=== PATIENT | female | born 1980 | race Caucasian/White ===

== ENCOUNTER 2017-08-01 08:10 | Emergency (ER) | payer MEDICARE, MEDICAID ==
[2017-08-01] MEDS ORDERED: SODIUM CHLORIDE FLUSH 0.9% 10 ML SYRINGE IVP ONE (08:24)
--- NOTE | 2017-08-01 08:28 | ED Physician Documentation ---
PD HPI NVD - Stated complaint Stated Complaint: VOMITING - Chief complaint Chief Complaint: Abd Pain - History obtained from History obtained from: Patient - History of Present Illness Timing - onset: Today Timing - duration: Hours Timing - details: Abrupt onset, Still present Associated symptoms: Other (Anxiety). No: Abdominal pain Contributing factors: Other (The patient is getting ready to adopt a new dog.) Improved by: Vomiting Similar symptoms before: Diagnosis (Anxiety induced vomiting) Recently seen: Not recently seen - Additonal information Additional information: 36-year-old female who is a bit nervous about adopting a new dog has developed acute vomiting this morning. She has had prior issue with vomiting requiring a 3 L saline infusion for dehydration. She is here this morning after several hours of vomiting and some diarrhea. She does feel dehydrated. Review of Systems Constitutional: denies: Fever, Chills, Myalgias Eyes: denies: Photophobia Ears: denies: Ear pain Nose: denies: Congestion Throat: denies: Sore throat Cardiac: denies: Chest pain / pressure, Palpitations Respiratory: denies: Dyspnea, Cough GI: reports: Nausea, Vomiting. denies: Abdominal Pain, Constipation, Diarrhea : denies: Dysuria, Frequency Skin: denies: Rash PD PAST MEDICAL HISTORY - Present Medications Home Medications: Ambulatory Orders Medication Instructions Recorded Confirmed Allopurinol 100 mg PO DAILY 08/01/17 08/01/17 Dicyclomine [Bentyl] 20 mg PO QID 08/01/17 08/01/17 Folic Acid 1,000 mg DAILY 08/01/17 08/01/17 Levothyroxine Sodium [Levoxyl] 100 mcg PO DAILY 08/01/17 08/01/17 Promethazine [Phenergan] 12.5 mg PO Q6H PRN 08/01/17 08/01/17 Sertraline HCl [Zoloft] 100 mg PO DAILY 08/01/17 08/01/17 Sulfamethoxazole/Trimethoprim 1 each PO BID #10 tablet 08/01/17 [Sulfamethoxazole-Tmp Ds Tablet] metroNIDAZOLE [Flagyl] 0 mg PO BID 08/01/17 08/01/17 - Allergies Allergies/Adverse Reactions: Allergies Allergy/AdvReac Type Severity Reaction Status Date / Time No Known Drug Allergies Allergy Verified 08/01/17 08:23 PD ED PE NORMAL - Vitals Vital signs reviewed: Yes (hypertensive) - General General: Alert and oriented X 3, No acute distress, Well developed/nourished - HEENT HEENT: Atraumatic, PERRL, EOMI, Other (The right TM is sealed and there is a blue tinge behind the TM consistent with a retained PE tube.) - Neck Neck: Supple, no meningeal sign, No bony TTP - Cardiac Cardiac: RRR, No murmur - Respiratory Respiratory: No respiratory distress, Clear bilaterally - Abdomen Abdomen: Normal bowel sounds, Soft, Non tender - Back Back: No CVA TTP, No spinal TTP - Derm Derm: Normal color, Warm and dry, No rash - Extremities Extremities: No deformity, No edema - Neuro Neuro: No motor deficit, No sensory deficit - Psych Psych: Normal mood, Normal affect Results - Vitals Vitals: Vital Signs - 24 hr 08/01/17 08/01/17 08/01/17 08:19 09:49 09:52 Temperature 36.1 C L 36 C L Heart Rate 92 82 78 Respiratory 18 18 22 Rate Blood Pressure 123/94 H 147/80 H 147/80 H O2 Saturation 100 100 100 08/01/17 10:15 Temperature Heart Rate 76 Respiratory 16 Rate Blood Pressure 131/78 H O2 Saturation 96 Oxygen O2 Source Room air - Labs Labs: Laboratory Tests 08/01/17 08/01/17 08/01/17 09:00 09:00 10:55 WBC 7.4 RBC 4.70 Hgb 13.1 Hct 39.4 MCV 83.8 MCH 27.9 MCHC 33.3 RDW 15.2 H Plt Count 236 MPV 8.2 Neut # 6.0 Lymph # 0.8 L Hemphill # 0.4 Eos # 0.1 Baso # 0.0 Absolute Nucleated RBC 0.00 Nucleated RBCs 0.0 Sodium 139 Potassium 3.9 Chloride 104 Carbon Dioxide 22 Anion Gap 13.0 BUN 22 H Creatinine 0.8 Estimated GFR (MDRD) 81 L Glucose 126 H Calcium 9.4 Total Bilirubin 0.4 AST 31 ALT 22 Alkaline Phosphatase 60 Total Protein 7.3 Albumin 4.6 Globulin 2.7 Albumin/Globulin Ratio 1.7 Lipase 27 Urine Color YELLOW Urine Clarity CLEAR Urine pH 6.0 Ur Specific Holland 1.025 Urine Protein NEGATIVE Urine Glucose (UA) NEGATIVE Urine Ketones 15 H Urine Occult Blood NEGATIVE Urine Nitrite NEGATIVE Urine Bilirubin NEGATIVE Urine Urobilinogen 0.2 (NORMAL) Ur Leukocyte Esterase SMALL H Urine RBC 0-5 Urine WBC 11-25 H Urine WBC Clumps PRESENT Ur Squamous Epith Cells MANY Squamous H Urine Bacteria Rare Ur Microscopic Review INDICATED Urine Culture Comments NOT INDICATED Urine HCG, Qual NEGATIVE Procedures - IVC sono (time) 0840 Bedside IVC sono: IVC measures (cm) (1.93), IVC collapsed c insp (cm) (complete) , Dehydration (mild dehydration) PD MEDICAL DECISION MAKING - ED course Complexity details: reviewed results, re-evaluated patient, considered differential, d/w patient ED course: 36-year-old female with some anxiety related to getting a new dog has developed some vomiting and is mildly dehydrated. She has prior experience with significant dehydration and is come to the emergency department earlier today. She is given IV saline. In addition she does have what appears to be a retained tube behind the right TM. She is asked for referral to ENT. Patient is able to provide a urine specimen and there is concern for infection. She is administered a dose of Rocephin intravenously and we will give her a short course of sulfamethoxazole trimethoprim. Departure - Departure Disposition: 01 Home, Self Care Clinical Impression: Retained myringotomy tube in right ear, Dehydration Vomiting Qualifiers: Vomiting type: psychogenic vomiting Nausea presence: without nausea Qualified Code(s): F50.89 - Other specified eating disorder Urinary tract infection Qualifiers: Urinary tract infection type: acute cystitis Hematuria presence: without hematuria Qualified Code(s): N30.00 - Acute cystitis without hematuria Instructions: ED Dehydration, ED Nausea Vomiting Follow-Up: Gilmer Chatman MD [Primary Care Provider] - [facility] [Provider Group] Prescriptions: Sulfamethoxazole/Trimethoprim [Sulfamethoxazole-Tmp Ds Tablet] 1 each PO BID # 10 tablet
[2017-08-01] MEDS ORDERED: SODIUM CHLORIDE 0.9% 1,000 ML IV ONE (08:42)
[2017-08-01 09:17] LABS: BASOPHILS % (AUTO) 0.5 %; EOSINOPHILS # (AUTO) 0.1 10^3/uL (0.0-0.7); EOSINOPHILS % (AUTO) 1.8 %; HCT - HEMATOCRIT 39.4 % (37.0-47.0); HGB - HEMOGLOBIN 13.1 g/dL (12.0-16.0); LYMPHOCYTES # (AUTO) 0.8 10^3/uL (1.5-3.5); LYMPHOCYTES % (AUTO) 11.3 %; MEAN CORPUSCULAR HEMOGLOBIN 27.9 pg (27.0-31.0); MEAN CORPUSCULAR HGB CONC 33.3 g/dL (32.0-36.0); MEAN CORPUSCULAR VOLUME 83.8 fL (81.0-99.0); MEAN PLATELET VOLUME 8.2 fL (7.9-10.8); MONOCYTES # (AUTO) 0.4 10^3/uL (0.0-1.0); MONOCYTES % (AUTO) 5.4 %; RED CELL DISTRIBUTION WIDTH 15.2 % (12.0-15.0); UNCORRECTED WHITE BLOOD COUNT 7.4 x10^3/uL; WHITE BLOOD COUNT 7.4 x10^3/uL (4.8-10.8)
[2017-08-01] MEDS ORDERED: ONDANSETRON 4 MG/2 ML VIAL IVP STA (09:18)
[2017-08-01] MEDS ORDERED: ONDANSETRON 4 MG/2 ML VIAL ONE (09:24)
[2017-08-01 09:26] LABS: ALBUMIN/GLOBULIN RATIO 1.7 (1.0-2.2); BILIRUBIN,TOTAL 0.4 mg/dL (0.2-1.0); CALCIUM 9.4 mg/dL (8.5-10.3); CREATININE 0.8 mg/dL (0.4-1.0); POTASSIUM 3.9 mmol/L (3.5-5.0); TOTAL PROTEIN 7.3 g/dL (6.7-8.2)
[2017-08-01] MEDS ORDERED: LORazepam 2 MG/ML SYRINGE IVP STA (09:31)
[2017-08-01] MEDS ORDERED: LORazepam 2 MG/ML SYRINGE ONE (09:53)
[2017-08-01 11:09] LABS: BILIRUBIN,URINE NEGATIVE (NEGATIVE)
[2017-08-01 11:13] LABS: HCG UR QUAL NEGATIVE; UA w/ MICROSCOPIC CHARGE YES
[2017-08-01 11:21] LABS: UR CULTURE IF IND NOT INDICATED
[2017-08-01] MEDS ORDERED: cefTRIAXone 1 GM in SODIUM CHLORIDE 0.9% MINIBAG 100 ML IV STA (11:43)
[2017-08-01] MEDS ORDERED: cefTRIAXone 1 GM VIAL ONE (11:53)
[2017-08-01 12:09] VITALS: BP 100/65
== END 2017-08-01 12:32 | disposition home or self-care (01) ==
LOC: ED 08:10
DX: E86.0 Dehydration (principal); R11.2 Nausea with vomiting, unspecified; N30.00 Acute cystitis without hematuria; Z96.22 Myringotomy tube(s) status
CPT/HCPCS: 36415; 80053; 81001; 81025; 83690; 85025; 96374; 96375; 99283; 99284; J2060; 81003; 87086

== ENCOUNTER 2017-08-15 08:35 | Emergency (ER) | payer MEDICARE, MEDICAID ==
--- NOTE | 2017-08-15 08:52 | ED Physician Documentation ---
PD HPI NVD - Stated complaint Stated Complaint: N/V/D - Chief complaint Chief Complaint: Abd Pain - History obtained from History obtained from: Patient - History of Present Illness Timing - onset: Today Timing - duration: Hours Timing - details: Abrupt onset, Still present Associated symptoms: Abdominal pain (mild mid stomach once vomiting.). No: Fever Contributing factors: No: Sick contact, Bad food, Travel, Recent antibiotics Improved by: No: Eating, Vomiting Worsened by: Other (cough and sometimes with abrupt change position (feels nauseated when first getting up in the morning)). No: Eating, Moving Similar symptoms before: No diagnosis (has had episodes like this related to feeling anxious mostly, but will feel nauseated/vomit once when first getting up in the morning fairly often. Only bad enough to go to ER several times.) Recently seen: Emergency Dept (for similar episode, improved with IV fluids and meds.) Review of Systems Constitutional: denies: Fever Eyes: denies: Loss of vision, Decreased vision, Photophobia Ears: denies: Loss of hearing, Ear pain, Tinnitus/ringing Nose: denies: Rhinorrhea / runny nose, Congestion Throat: denies: Sore throat Cardiac: denies: Chest pain / pressure Respiratory: reports: Cough. denies: Dyspnea, Wheezing GI: reports: Vomiting. denies: Abdominal Swelling, Constipation, Diarrhea : denies: Dysuria, Frequency PD PAST MEDICAL HISTORY - Past Medical History Endocrine/Autoimmune: HyPOthyroidism, Other GI: Other : Other Psych: Depression, Anxiety Musculoskeletal: Osteoporosis, Gout - Past Surgical History Past Surgical History: Yes HEENT: Myringotomy (tubes), Tonsil/Adenoidectomy - Present Medications Home Medications: Ambulatory Orders Medication Instructions Recorded Confirmed Allopurinol 100 mg PO DAILY 08/01/17 08/01/17 Dicyclomine [Bentyl] 20 mg PO QID 08/01/17 08/01/17 Folic Acid 1,000 mg DAILY 08/01/17 08/01/17 Levothyroxine Sodium [Levoxyl] 100 mcg PO DAILY 08/01/17 08/01/17 Promethazine [Phenergan] 12.5 mg PO Q6H PRN 08/01/17 08/01/17 Sertraline HCl [Zoloft] 100 mg PO DAILY 08/01/17 08/01/17 Sulfamethoxazole/Trimethoprim 1 each PO BID #10 tablet 08/01/17 [Sulfamethoxazole-Tmp Ds Tablet] Ondansetron Odt [Zofran] 4 mg TL Q6H PRN #15 tablet 08/15/17 - Allergies Allergies/Adverse Reactions: Allergies Allergy/AdvReac Type Severity Reaction Status Date / Time No Known Drug Allergies Allergy Verified 08/01/17 08:23 - Social History Does the pt smoke?: No Smoking Status: Never smoker Does the pt drink ETOH?: No Does the pt have substance abuse?: Yes PD ED PE NORMAL - Vitals Vital signs reviewed: Yes - General General: Alert and oriented X 3, Well developed/nourished, Other (seems uncomfortable and holding emesis bag, some dry heaving at times.) - HEENT HEENT: Pharynx benign. No: Ears normal (has retained eartube behind right eardrum.) - Neck Neck: Supple, no meningeal sign, No adenopathy - Cardiac Cardiac: RRR, No murmur - Respiratory Respiratory: Clear bilaterally - Abdomen Abdomen: Normal bowel sounds, Soft, Non distended, No organomegaly, Other (mild tender periumbilical without hernia, no percussion nor rebound tenderness. ) - Female Female : Deferred - Rectal Rectal: Deferred - Back Back: No CVA TTP - Derm Derm: Normal color, Warm and dry - Extremities Extremities: No tenderness to palpate, Normal ROM s pain - Neuro Neuro: Alert and oriented X 3, No motor deficit, Normal speech Results - Vitals Vitals: Vital Signs - 24 hr 08/15/17 08/15/17 08/15/17 08:42 09:59 10:47 Temperature 35.7 C L 36.5 C Heart Rate 82 84 70 Respiratory 16 18 16 Rate Blood Pressure 139/100 H 107/74 133/88 H O2 Saturation 100 99 100 Oxygen O2 Source Room air PD MEDICAL DECISION MAKING - ED course Complexity details: re-evaluated patient (feeling better with fluids and meds. Abd not tender. Seems mainly psychogenic then gets pains once started. She said she was going to still get ENT appt regarding the ear tube retained. It has been there for many years so doubt that it is part of the cough/emesis she has now, but is worth second opinion. Could trigger a cough and some nausea if loosened and is slightly mobile. ), considered differential, d/w patient Departure - Departure Disposition: 01 Home, Self Care Clinical Impression: Vomiting Qualifiers: Vomiting type: unspecified Vomiting Intractability: intractable Nausea presence : without nausea Qualified Code(s): R11.11 - Vomiting without nausea Condition: Stable Record reviewed to determine appropriate education?: Yes Instructions: ED Nausea Vomiting Follow-Up: Gilmer Chatman MD [Primary Care Provider] - Prescriptions: Ondansetron Odt [Zofran] 4 mg TL Q6H PRN #15 tablet PRN Reason: Nausea / Vomiting Comments: Frequent fluids today. Zofran if needed for nausea. Continue with usual medications. Return as needed. (Still follow up with ENT, call for appt. - verbal instruction given). Discharge Date/Time: 08/15/17 10:57
[2017-08-15] MEDS ORDERED: LORazepam 2 MG/ML SYRINGE IVP STA (09:07)
[2017-08-15] MEDS ORDERED: SODIUM CHLORIDE 0.9% 1,000 ML IV ONE (09:07)
[2017-08-15] MEDS ORDERED: ONDANSETRON 4 MG/2 ML VIAL IVP STA (09:07)
[2017-08-15] MEDS ORDERED: LORazepam 2 MG/ML SYRINGE ONE (09:54)
[2017-08-15] MEDS ORDERED: ONDANSETRON 4 MG/2 ML VIAL ONE (09:54)
[2017-08-15 10:47] VITALS: BP 133/88
== END 2017-08-15 10:57 | disposition home or self-care (01) ==
LOC: ED 08:35
DX: R11.11 Vomiting without nausea (principal); E03.9 Hypothyroidism, unspecified
CPT/HCPCS: 96361; 96374; 96375; 99283; 99284; J2060

== ENCOUNTER 2017-08-31 14:22 | Outpatient (CLI) | payer MEDICARE, MEDICAID ==
[2017-08-31 15:23] LABS: BASOPHILS # (AUTO) 0.1 10^3/uL (0.0-0.1); BASOPHILS % (AUTO) 0.7 %; EOSINOPHILS # (AUTO) 0.1 10^3/uL (0.0-0.7); EOSINOPHILS % (AUTO) 1.5 %; HCT - HEMATOCRIT 39.2 % (37.0-47.0); HGB - HEMOGLOBIN 13.1 g/dL (12.0-16.0); LYMPHOCYTES # (AUTO) 2.1 10^3/uL (1.5-3.5); LYMPHOCYTES % (AUTO) 25.3 %; MEAN CORPUSCULAR HEMOGLOBIN 28.7 pg (27.0-31.0); MEAN CORPUSCULAR HGB CONC 33.5 g/dL (32.0-36.0); MEAN CORPUSCULAR VOLUME 85.7 fL (81.0-99.0); MEAN PLATELET VOLUME 7.8 fL (7.9-10.8); MONOCYTES # (AUTO) 0.6 10^3/uL (0.0-1.0); MONOCYTES % (AUTO) 7.4 %; NEUTROPHILS # (AUTO) 5.4 10^3/uL (1.5-6.6); NEUTROPHILS % (AUTO) 65.1 %; RED BLOOD COUNT 4.58 10^6/uL (4.20-5.40); RED CELL DISTRIBUTION WIDTH 14.8 % (12.0-15.0); UNCORRECTED WHITE BLOOD COUNT 8.4 x10^3/uL; WHITE BLOOD COUNT 8.4 x10^3/uL (4.8-10.8)
[2017-08-31 15:33] LABS: ALBUMIN/GLOBULIN RATIO 1.7 (1.0-2.2); BILIRUBIN,TOTAL 0.6 mg/dL (0.2-1.0); CALCIUM 9.4 mg/dL (8.5-10.3); CREATININE 0.7 mg/dL (0.4-1.0); POTASSIUM 3.8 mmol/L (3.5-5.0); TOTAL PROTEIN 7.2 g/dL (6.7-8.2)
[2017-08-31 16:10] LABS: THYROID STIMULATING HORMONE 15.17 uIU/mL (0.34-5.60)
[2017-08-31 16:28] LABS: HEMOGLOBIN A1C 0.49 g/dL
[2017-09-02 19:06] LABS: TEST RESULT REPORT
== END 2017-08-31 14:23 | disposition home or self-care (01) ==
LOC: LAB 14:22
PROVIDERS: ATTEND Internal Medicine
DX: R52 Pain, unspecified (principal); R20.0 Anesthesia of skin; E03.9 Hypothyroidism, unspecified; M10.9 Gout, unspecified; Z79.899 Other long term (current) drug therapy
CPT/HCPCS: 36415; 80053; 81599; 82607; 83036; 84443; 85025; 86617

== ENCOUNTER 2017-10-03 08:40 | Outpatient (CLI) | payer MEDICARE, MEDICAID ==
[~2017-10-03 08:40] MED LIST: GADOBUTROL 15 MMOL/15 ML VIAL ONE
[2017-10-03] MEDS ORDERED: GADOBUTROL 15 MMOL/15 ML VIAL IVP ONE (10:14)
--- NOTE | 2017-10-03 15:34 | MRI Preliminary Report ---
Exam: MRI BRAIN W/WO Impressions: 1. No acute or subacute ischemic change in the brain. 2. Unremarkable brain, otic capsule contents. Cisternal segments of the major cranial nerves negative . [facility] SITE ID: [id number]
--- NOTE | 2017-10-03 15:36 | MRI Report ---
EXAM: MRI BRAIN AND INTERNAL AUDITORY CANAL (IAC),WITHOUT AND WITH CONTRAST. EXAM DATE: 10/03/2017 10:47 AM. CLINICAL HISTORY: VERTIGO. Reported history of right ear myringotomy tube. COMPARISON: None. TECHNIQUE: Multiplanar, multisequence T1-weighted and fluid-sensitive MRI sequences of the brain and IACs were performed. Other: None. IV Contrast: 12 cc Gadavist. Findings: Relevant images are indicated (image number, series number). There is no acute or subacute ischemic changes in the brain. There is no significant cortical atrophy . The ventricles are not dilated and there is no white matter disease. Orbital contents negative. Rashaad ateral Meckel's caves are clear. The lateral temporal lobes negative. Bilateral IACs unremarkable. Ci sternal segments of the major cranial nerves appear unremarkable. Bilateral otic capsule contents, se micircular canals cochlea, vestibule. Unremarkable. Pituitary, infundibulum, midbrain, craniocervical junction, limited evaluation upper cervical cord negative. Postcontrast imaging demonstrates no abnormal enhancement of the brain, meninges. No suspicious marro w lesions. Impressions: 1. No acute or subacute ischemic change in the brain. 2. Unremarkable brain, otic capsule contents. Cisternal segments of the major cranial nerves negative . [facility] Referring Provider Line: [phone] SITE ID: [id number]
== END 2017-10-03 08:41 | disposition home or self-care (01) ==
LOC: DI 08:40
PROVIDERS: ATTEND Internal Medicine
DX: R42 Dizziness and giddiness (principal)
CPT/HCPCS: 70553; A9585

== ENCOUNTER 2017-10-09 10:06 | Outpatient (CLI) | payer MEDICARE ==
--- NOTE | 2017-10-09 11:52 | Ultrasound Report ---
ULTRASOUND RIGHT BREAST: 10/09/2017 CLINICAL INDICATION: Palpable abnormality right lower outer quadrant. TECHNIQUE: Real-time scanning was performed with computer help desk representative static images obtained. FINDINGS: Ultrasound of the palpable region identified by the patient was performed. Unremarkable p arenchymal lobules are seen. No discrete solid or cystic lesion is appreciated. No sonographically suspicious findings are seen. IMPRESSION: NEGATIVE EXAMINATION. RECOMMENDATION: Routine annual screening unless otherwise clinically indicated. BIRADS CATEGORY 1 - NEGATIVE. JOB #: [id number] EXT JOB #:[id number]
--- NOTE | 2017-10-09 17:03 | Mammography Report ---
DIGITAL DIAGNOSTIC BILATERAL MAMMOGRAM: 10/09/2017 CLINICAL INDICATION: A 36-year-old with palpable abnormality right lower outer quadrant. This is the patient's baseline mammogram. TECHNIQUE: Bilateral CC and MLO views, right true lateral view. A marker was placed at the site of pa lpable abnormality identified by the patient in the right lower outer central breast. FINDINGS: The breasts demonstrate fatty replacement bilaterally. No suspicious masses, clustered georges rocalcifications, or regions of architectural distortion are identified. Please also refer to right breast ultrasound of the same day. IMPRESSION: NEGATIVE EXAMINATION. RECOMMENDATION: ROUTINE ANNUAL SCREENING UNLESS OTHERWISE CLINICALLY INDICATED. BIRADS CATEGORY 1-NEGATIVE. STANDARD QUALIFYING STATEMENTS 1. This examination was reviewed with the aid of Computer-Aided Detection (CAD). 2. A negative or benign imaging report should not delay biopsy if clinically suspicious findings are present. Consider surgical consultation if warranted. More than 5% of cancers are not identified by i maging. 3. Dense breasts may obscure an underlying neoplasm. JOB #: [id number] EXT JOB #:[id number]
== END 2017-10-09 10:07 | disposition home or self-care (01) ==
LOC: DI 10:06
PROVIDERS: ATTEND Internal Medicine
DX: N63.13 Unspecified lump in the right breast, lower outer quadrant (principal)
CPT/HCPCS: 76642; G0204; 77066

== ENCOUNTER 2017-10-26 09:38 | Outpatient (CLI) | payer MEDICARE, MEDICAID ==
[2017-10-26 09:57] LABS: BASOPHILS # (AUTO) 0.1 10^3/uL (0.0-0.1); BASOPHILS % (AUTO) 0.7 %; EOSINOPHILS # (AUTO) 0.2 10^3/uL (0.0-0.7); EOSINOPHILS % (AUTO) 3.1 %; HGB - HEMOGLOBIN 13.7 g/dL (12.0-16.0); LYMPHOCYTES # (AUTO) 1.7 10^3/uL (1.5-3.5); LYMPHOCYTES % (AUTO) 21.8 %; MEAN CORPUSCULAR HEMOGLOBIN 29.5 pg (27.0-31.0); MEAN CORPUSCULAR HGB CONC 34.1 g/dL (32.0-36.0); MEAN CORPUSCULAR VOLUME 86.4 fL (81.0-99.0); MEAN PLATELET VOLUME 7.5 fL (7.9-10.8); MONOCYTES # (AUTO) 0.5 10^3/uL (0.0-1.0); MONOCYTES % (AUTO) 6.4 %; NEUTROPHILS # (AUTO) 5.2 10^3/uL (1.5-6.6); RED BLOOD COUNT 4.63 10^6/uL (4.20-5.40); RED CELL DISTRIBUTION WIDTH 13.5 % (12.0-15.0); UNCORRECTED WHITE BLOOD COUNT 7.7 x10^3/uL; WHITE BLOOD COUNT 7.7 x10^3/uL (4.8-10.8)
== END 2017-10-26 09:39 | disposition home or self-care (01) ==
LOC: LAB 09:38
PROVIDERS: ATTEND Surgery
DX: R19.7 Diarrhea, unspecified (principal)
CPT/HCPCS: 36415; 84443; 85025; 85651; 86140

== ENCOUNTER 2017-10-30 08:00 | Outpatient (CLI) | payer MEDICARE, MEDICAID | END 2017-10-30 23:59 | disposition home or self-care (01) | LOC: LAB.R 08:00 | PROVIDERS: ATTEND Surgery | DX: R19.7 Diarrhea, unspecified (principal) | CPT/HCPCS: 81599; 82270; 83630; 87045; 87046; 87177; 87209; 87493 ==